=== PATIENT | male | born 1940 | race Caucasian/White ===

== ENCOUNTER 2022-02-25 16:15 | Outpatient (CLI) | payer MEDICARE, BC, SELFPAY ==
[2022-02-25 21:58] LABS: NT Pro B Type NatriureticPept* 1050 PG/mL (0-450)
== END 2022-02-25 16:16 | disposition home or self-care (01) ==
LOC: LKVREF 16:16
PROVIDERS: PCP Physician Assistant Medical; Visit Provider Physician Assistant Medical
DX: J44.9 Chronic obstructive pulmonary disease, unspecified (principal); R06.00 Dyspnea, unspecified
CPT/HCPCS: 83880

== ENCOUNTER 2022-03-03 09:41 | Outpatient (CLI) | payer MEDICARE, BC, SELFPAY ==
[2022-03-03 14:45] LABS: NT Pro B Type NatriureticPept* 697 PG/mL (0-450)
== END 2022-03-03 09:42 | disposition home or self-care (01) ==
LOC: LKVREF 09:44
PROVIDERS: PCP Physician Assistant Medical; Visit Provider Physician Assistant Medical
DX: R06.00 Dyspnea, unspecified (principal)
CPT/HCPCS: 83880

== ENCOUNTER 2022-04-29 11:08 | Outpatient (CLI) | payer MEDICARE, BC, SELFPAY ==
[2022-04-29 14:13] LABS: NT Pro B Type NatriureticPept* 613 PG/mL (0-450)
== END 2022-04-29 11:09 | disposition home or self-care (01) ==
PROVIDERS: PCP Physician Assistant Medical; Visit Provider Physician Assistant Medical
DX: Z01.818 Encounter for other preprocedural examination (principal); R06.00 Dyspnea, unspecified
CPT/HCPCS: 83880

== ENCOUNTER 2022-12-09 07:49 | Outpatient (RCR) | payer MEDICARE, BC, SELFPAY ==
--- NOTE | 2022-12-09 08:00 | NM_ITS ---
Patient: EMILY SOLORZANO Facility:?[facility] Patient ID:?[id number] Site Patient ID:?[id number] Site :?[id number] Study:?NM-Cardiac LEXISCAN MYOCARDIAL PERFUSION-12/09/2022 11:17:44 AM Ordering Physician:?ALISHA MAYER Final Report: MYOCARDIAL PERFUSION SCAN CLINICAL HISTORY: 82-year-old male. Dyspnea. COPD. Emphysema. Paroxysmal atrial fibrillation. Hypertension. Hyperlipidemia. 250 pounds. TECHNIQUE: (Resting SPECT and Stress Gated SPECT with wall motion and ejection fraction) Stress: Pharmacologic ? Lexiscan (0.4 mg) (IV) Dose (Stress/Rest): 40.7 mCi/39.9 mCi Tc-99m Sestamibi (IV) Comparison: 01/25/2005 (report) FINDINGS: There is good uptake of activity by the left ventricle. No left ventricular enlargement is noted. There is mild soft tissue attenuation. No other significant fixed or reversible defects are identified. The gated images demonstrate a normal left ventricular ejection fraction of approximately 65 percent. No regional wall motion abnormalities are identified. Compared to the report of the 01/25/2005 study, there has been no significant change. IMPRESSION: 1. There is no evidence of significant myocardial ischemia or infarction. 2. Normal left ventricular ejection fraction of approximately 65 percent. Hair Dubose M.D. Diagnostic/Nuclear Medicine Radiologist [email or web address] LEONIDESB/djw: D& Transcribed: 2:35 pm DW/Dictated by: Hair Dubose MD @ 12/09/2022 1:49:00 PM Signed by:?Hair Dubose MD @12/09/2022 4:26:44 PM (Electronic Signature)
[2022-12-09] MEDS: SODIUM CHLORIDE 0.9 % (FLUSH) 10 ML SYRINGE IVF (08:55)
[2022-12-09] MEDS: REGADENOSON 0.4 MG/5 ML SYRINGE IVP (08:55)
[2022-12-09 09:20] VITALS: BP 165/90; PULSE 76
--- NOTE | 2022-12-09 15:26 | W.PM.STED ---
Stress Test Note Date Date of test: 12/09/22 Providers Primary care provider: Liliana Joy Stress test physician: Johann Rao Stress Test Note Stress test ordered: Lexiscan Indication for test: Shortness of breath Stress test medicine: Lexiscan Results discussion: Patient is a very nice 82-year-old gentleman who presents for the above test after discussion risks benefits side effects he would like to proceed pretest EKG shows normal sinus rhythm, with a ventricular rate of 61 blood pressure 168 on 86. No acute ST wave changes are noted. With occasional PVC. Cardiac stress test medical history form is reviewed. Standard Lexiscan nonwalking protocol is employed over the normal 5 minute. There were no complications he had absolutely no symptoms at all during the test. Review of the post test tracing shows no change from the pretest EKG. There is no ST wave changes, there is no dysrhythmias. Impression: Negative electrographic portion of Lexiscan Follow up suggested: Patient will be discharged home , nuclear Medicine will read the nuclear portion, clinical correlation with this will be needed. Patient left this testing facility back to baseline with no apparent distress
== END 2022-12-21 23:59 | disposition home or self-care (01) ==
LOC: STRESS 07:49
PROVIDERS: PCP Physician Assistant Medical; Visit Provider Family Medicine
DX: R06.00 Dyspnea, unspecified (principal)
CPT/HCPCS: 78452; 93016; 93017; A9500; J2785

== ENCOUNTER 2023-02-17 13:34 | Outpatient (CLI) | payer MEDICARE, BC, SELFPAY | END 2023-02-17 13:35 | disposition home or self-care (01) | LOC: LKVREF 13:35 | PROVIDERS: PCP Physician Assistant Medical; Visit Provider Physician Assistant Medical | DX: I11.0 Hypertensive heart disease with heart failure (principal); I50.9 Heart failure, unspecified; I48.92 Unspecified atrial flutter; I48.0 Paroxysmal atrial fibrillation; Z79.01 Long term (current) use of anticoagulants; R79.89 Other specified abnormal findings of blood chemistry; R06.00 Dyspnea, unspecified; E78.5 Hyperlipidemia, unspecified | CPT/HCPCS: 83880; 85610 ==

== ENCOUNTER 2023-02-24 12:29 | Observation (INO) | payer MEDICARE, BC, SELFPAY ==
[2023-02-24] VITALS (8 sets, daily range): BP systolic 133–154; BP diastolic 91–113; PULSE 55–87; RESP 18–20; TEMP 36.1–36.6; O2SAT 91–94; BMI 38.6
--- NOTE | 2023-02-24 14:51 | P.IMHP_ITS ---
Hospitalist- H&P: HPI History of Present Illness Time Seen by Provider: 13:30 Date Seen: 02/24/23 Chief complaint: direct admit Narrative: Kumar Sam is a 82 year old man with 2 month history of progressive dyspnea with exertion. Can hardly walk up a flight of steps now, can only walk 50 ft at most now before needing to stop to catch his breath. Denies cough. Denies fevers, rigors, diaphoresis. Denies paroxysmal nocturnal dyspnea or orthopnea. Denies chest heaviness, pressure, tightness, or pain. Acknowledges increased lower extremity edema. Denies claudication. Denies palpitations or chest fluttering. No blood loss. No recent major travel. Chronically anticoagulated due to paroxysmal atrial fibrillation, yet he is in unaware of having a cardiac dysrhythmia diagnosis. Review of Systems Status of ROS: Reports: 10 or more systems reviewed and unremarkable except as noted in History and below Narrative: Applies salt directly to his food before he eats on a routine, regular basis. [facility] Medical History (Updated 02/24/23 @ 15:23 by Darryl Steele MD) Paroxysmal atrial fibrillation ?I48.0 - Paroxysmal atrial fibrillation (ICD-10) Pulmonary emphysema (08/2020) ?J43.9 - Emphysema, unspecified (ICD-10) Obstructive sleep apnea treated with continuous positive airway pressure (CPAP) ?G47.33 - Obstructive sleep apnea (adult) (pediatric) (ICD-10) ?Z99.89 - Dependence on other enabling machines and devices (ICD-10) Arthritis of right acromioclavicular joint ?M19.011 - Primary osteoarthritis, right shoulder (ICD-10) Right rotator cuff tear arthropathy ?M75.101 - Unspecified rotator cuff tear or rupture of right shoulder, not specified as traumatic (ICD-10) ?M12.811 - Other specific arthropathies, not elsewhere classified, right shoulder (ICD-10) Lumbar facet arthropathy ?M47.816 - Spondylosis without myelopathy or radiculopathy, lumbar region (ICD-10) Spinal cord stimulator status ?Z96.89 - Presence of other specified functional implants (ICD-10) HTN (hypertension) ?I10 - Essential (primary) hypertension (ICD-10) Leg swelling ?M79.89 - Other specified soft tissue disorders (ICD-10) Dyspnea ?R06.00 - Dyspnea, unspecified (ICD-10) Right shoulder pain (07/2021) ?M25.511 - Pain in right shoulder (ICD-10) ocean transportation intermediary current use of anticoagulant therapy ?Z79.01 - [facility] (current) use of anticoagulants (ICD-10) Hyperlipidemia ?E78.5 - Hyperlipidemia, unspecified (ICD-10) 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 ?H91.92 - Unspecified hearing loss, left ear (ICD-10) Gastroesophageal reflux disease ?K21.9 - Gastro-esophageal reflux disease without esophagitis (ICD-10) Chronic urticaria ?L50.8 - Other urticaria (ICD-10) Chronic back pain ?M54.9 - Dorsalgia, unspecified (ICD-10) ?G89.29 - Other chronic pain (ICD-10) Benign prostatic hyperplasia ?N40.0 - Benign prostatic hyperplasia without lower urinary tract symptoms (ICD-10) Restless legs ?G25.81 - Restless legs syndrome (ICD-10) Chronic low back pain ?M54.50 - Low back pain, unspecified (ICD-10) ?G89.29 - Other chronic pain (ICD-10) Pain of left lower extremity (08/2020) ?M79.605 - Pain in left leg (ICD-10) Excessive cerumen in ear canal ?H61.20 - Impacted cerumen, unspecified ear (ICD-10) Chronic otitis media ?H66.90 - Otitis media, unspecified, unspecified ear (ICD-10) Surgical History History of lumbar surgery ?Z98.890 - Other specified postprocedural states (ICD-10) History of cholecystectomy ?Z90.49 - Acquired absence of other specified parts of digestive tract (ICD- 10) Social History Narrative: health care directive on file- health care directive completed on 10/16/2019. Reviewed and sent to be scanned on 12/18/2019. . Lives alone. DNR DNI resuscitation status. Designates his daughter, Krystal, as his power of patent prosecution attorney for health should that be required, or his son Emerson. What is your current living situation?: I presently have a place to live Problems where you live: no known problems Problems where you live details: none In the past 12 months, utilities in danger of being shut off: no In the past 12 mos, have been you worried that your food would run out before you had money to buy more?: never true In the past 12 mos, the food you bought just didn't last and you didn't have money to buy more?: never true Highest level of school completed/degree received: high school graduate Smoking Status: Former smoker What tobacco products do you use: cigarettes Years smoked: 35 Smoking quit date/years: >15 years ago Do you use any of these nicotine containing products: None Second hand tobacco smoke exposure: No How often do you have a drink containing alcohol: 2-3 times a week Alcohol type: beer Alcohol type details: 1 beer twice a week How many standard drinks containing alcohol do you have on a typical day: 1 or 2 How often do you have six or more drinks on one occasion: Never AUDIT-C Alcohol total score: 3 Non-prescribed substance use: denies use Caffeine: Yes (6-8 cups) How often does anyone, including family, friends and others, physically hurt you : never How often does anyone, including family, friends and others, insult or talk down to you: never How often does anyone, including family, friends and others, threaten you with harm: never How often does anyone, including family, friends and others, scream or curse at you: never service: No Meds Home Medications and Allergies Home Medications Medication Instructions Recorded Confirmed Type atorvastatin 10 mg tablet 10 mg PO HS 01/25/22 02/24/23 History amlodipine 5 mg tablet 5 mg PO QDAY 02/24/23 02/24/23 History hydrocodone 10 mg-acetaminophen 1 tab PO BID PRN chronic pain 02/24/23 02/24/23 History 325 mg tablet hydroxyzine pamoate 25 mg capsule 25 mg PO DAILY itching 02/24/23 02/24/23 History omeprazole 20 mg capsule,delayed 20 mg PO HS 02/24/23 02/24/23 History release potassium chloride 10 mEq 10 meq PO QDAY 02/24/23 02/24/23 History tablet,extended release ropinirole 0.5 mg tablet 0.5 mg PO HS restless leg(s) 02/24/23 02/24/23 History terazosin 2 mg capsule 2 - 4 mg PO BID 02/24/23 02/24/23 History warfarin 2.5 mg tablet 2.5 - 5 mg PO QDAY 02/24/23 02/24/23 History Home Medication Comments: Amlodipine was recently started, about a week ago, due to persistently elevated systolic blood pressures. Allergies Allergy/AdvReac Type Severity Reaction Status Date / Time ciprofloxacin Allergy Intermediate left arm Verified 02/24/23 09:34 pain, numbness Penicillins Allergy throat Verified 02/24/23 09:34 closing Exam Narrative: Exam Narrative: I examine him in his hospital room. Appears comfortable and in no acute distress while sitting upright on the edge of his hospital bed. Respiratory rate 20 at rest. Weight in hospital today 113.5 kg. Weight in clinic today 116.7 kg. Weight in clinic on 02/17/2023 is 115 0.5 kg. Weight in clinic on 02/03/2023 is 113.4 kg in the clinic. Alert and oriented to self, place, time, situation. Articulate, cooperative. Mood and affect are congruent. Vision and hearing are grossly normal. Does use hearing aid. Buccal mucosa is moist. Midline nasal septum. Mallampati class 4 airway. Neck is supple. Midline trachea. No thyromegaly. No carotid bruits. He has no jugular venous distension while sitting upright, but does have hepatojugular reflux to the angle of the jaw when sitting upright. Barrel shaped chest. Lungs clear to auscultation without wheezing, rhonchi, or rales. Heart tones with chaotic rhythm. Abdomen is obese with active bowel sounds, soft, nontender. Patient has peripheral edema pedally, pretibially, and in both eyes. Does not have edema in presacral area. Independent in transfer, station, and gait. Slow to move. Forward stooped posture. Changes of osteoarthritis in both hands. Const: Vital Signs, click to edit/add: Vital Signs - 24 hr 02/24/23 12:56 02/24/23 13:13 Temperature 97.8 F Pulse Rate [Left A pical] 73 Respiratory Rate 20 20 Blood Pressure [Ri ght Arm] 133/97 H Pulse Oximetry 91 91 Oxygen Delivery Me thod Room Air Room Air Documenting provider has reviewed patient's vital signs: yes Hospitalist - H&P: Result Labs Labs: CBC without abnormalities. Chemistries are pending, including NT proBNP and tr oponin I. Await electrocardiogram. Await echocardiogram. ECG Attestation: I personally reviewed and interpreted this ECG as follows: ECG interpretation date: 02/24/23 ECG interpretation time: 15:20 Prior ECG tracings: not available for review Interpretation: Atrial flutter with 4-1 conduction. Low-voltage QRS consistent with pulmonary disease. No ischemic changes. Imaging Chest x-ray: Attestation: I have reviewed the pertinent imaging results. Radiologist's impression: Radiologist interpretation still not available. Mild encephalization consistent with volume overloaded state. Assessment and Plan Assessment and plan (1) Heart failure with preserved ejection fraction: Status: Acute (2) Acute exacerbation of congestive heart failure: Status: Acute (3) Dyspnea on exertion: Status: Acute (4) Dyspnea: Problem comment: [id number] cancer screening, showing scattered emphysema, stable and coronary artery disease [id number] x-ray 11/2022- stress test IMPRESSION: 1. There is no evidence of significant myocardial ischemia or infarction. 2. Normal left ventricular ejection fraction of approximately 65 percent. 02/24/23- pt evaluated in clinic in atrial flutter. Elevated BNP Status: Acute (5) Leg swelling: Problem comment: On furosemide Status: Acute (6) Elevated brain natriuretic peptide (BNP) level: Status: Acute (7) Pulmonary emphysema: Problem comment: 08/24/2021-lung cancer screening, CT Head prescribe Symbicort, Flovent, Advair. Patient did not appreciate cost. Status: Acute (8) Obstructive sleep apnea treated with continuous positive airway pressure (CPAP): Status: Acute (9) Paroxysmal atrial fibrillation: Status: Acute (10) Atrial flutter with controlled response: Status: Acute Plan 1. Admit to observation 2. Telemetry 3. Daily weight 4. Discontinue furosemide 20 mg once daily which he tells me he has not really been taking 5. Furosemide 40 mg IV once 6. Furosemide 40 mg once daily starting tomorrow morning 7. Daily INR. Hold warfarin today given INR elevated at 3.3. 8. Transthoracic echocardiogram 9. Continue with metoprolol succinate 100 mg daily and losartan 100 mg daily 10. 2 g sodium diet. Dietary to teach patient. This was news for the patient and his 2 sons. Reportedly known has ever told him about this. Again he uses salt indiscriminately on his food. Will ask dietitian to instruct patient regarding a 2 g sodium diet. 11. Continue with other supportive efforts, including home CPAP. 12. Reviewed the above with the patient and his 2 sons. Answered their questions. They are in agreement.
[2023-02-24 14:54] LABS: Mean Corpuscular HGB Conc 32 gm/dL (32-36); Mean Corpuscular Hemoglobin 29 pg (26-34); Mean Corpuscular Volume 92 fL (80-100); Platelet Count* 178 K/uL (140-440); Red Blood Count 4.77 m/uL (4.30-5.90); White Blood Count* 6.65 K/uL (4.50-11.00)
[2023-02-24 14:56] LABS: Slide Review Reflex No
[2023-02-24] MEDS: FUROSEMIDE 10 MG/ML inj 40 MG IVP (15:09)
[2023-02-24 15:16] LABS: Albumin* 4.2 g/dL (3.3-5.0); Chloride* 107 mmol/L (96-114); Potassium* 4.4 mmol/L (3.6-5.1); Sodium* 141 mmol/L (135-149)
[2023-02-24 15:19] LABS: Anion Gap 8 mEq/L (7-15); Blood Urea Nitrogen* 19 mg/dL (7-30); Carbon Dioxide* 26 mmol/L (20-32); Est. Creatinine Clearance* 51.41; Estimated Glomerular Filt Rate 74 ml/min; Glucose* 95 mg/dL (60-115); Phosphorus* 3.9 mg/dL (2.5-4.5)
[2023-02-24 15:20] LABS: Calcium* 9.5 mg/dL (8.4-10.6)
--- NOTE | 2023-02-24 15:35 | PC.NURSE ---
Patient was a direct admit to med/surg from [facility] for heart failure and shortness of breath @ 1236 pm. Sons present at bedside. Admission information obtained per primary RN. Orders obtained after Dr. Steele evaluated pt and they were entered at 1422 pm. IV start per Irene WESTBROOK with lab draw, EKG, orthostatic bps at shift change & IV Lasix given. Tele box #[id number]. Report to Pat RN for evening shift.
[2023-02-24 15:36] LABS: NT Pro B Type NatriureticPept* 2760 pg/mL; Troponin I* < 0.01 ng/mL (0.01-0.04)
[2023-02-24] MEDS: LOSARTAN POTASSIUM 50 MG TABLET 100 MG PO (15:48)
[2023-02-24] MEDS: METOPROLOL SUCCINATE (XL) 100 MG TAB PO (15:48)
[2023-02-24] MEDS: SODIUM CHLORIDE 0.9 % (FLUSH) 10 ML SYRINGE 5 ML IVF (21:06)
[2023-02-24] MEDS: ROPINIROLE HCL 1 MG TABLET 0.5 MG PO (21:06)
[2023-02-24] MEDS: OMEPRAZOLE 20 MG CAPSULE DR PO (21:06)
[2023-02-24] MEDS: TERAZOSIN HCL 1 MG CAPSULE 2 MG PO (21:06)
[2023-02-24] MEDS: ATORVASTATIN 10 MG TABLET PO (21:07)
--- NOTE | 2023-02-24 22:35 | PC.NURSE ---
end of shift. pt has been pleasant. no pain. pt is up with SBA. he is using his call light. he got Lasix and has been voiding. he is eating, drinking with no problems. teds socks are on. he is watching tv
[2023-02-25] VITALS (7 sets, daily range): BP systolic 128–151; BP diastolic 71–91; PULSE 58–79; RESP 16–18; TEMP 36.7; O2SAT 90–96
[2023-02-25 07:02] LABS: Albumin* 4.1 g/dL (3.3-5.0); Chloride* 106 mmol/L (96-114); Sodium* 142 mmol/L (135-149)
[2023-02-25 07:05] LABS: Anion Gap 9 mEq/L (7-15); Blood Urea Nitrogen* 24 mg/dL (7-30); Calcium* 9.6 mg/dL (8.4-10.6); Carbon Dioxide* 27 mmol/L (20-32); Est. Creatinine Clearance* 51.41; Estimated Glomerular Filt Rate 74 ml/min; Glucose* 102 mg/dL (60-115); Phosphorus* 3.9 mg/dL (2.5-4.5)
[2023-02-25 07:07] LABS: INR 2.42 (0.91-1.10); Prothrombin Time 27.5 Seconds
[2023-02-25] MEDS: FUROSEMIDE 40 MG TABLET PO (08:51)
[2023-02-25] MEDS: hydrOXYzine pamoate 25 MG CAPSULE PO (08:51)
[2023-02-25] MEDS: METOPROLOL SUCCINATE (XL) 100 MG TAB PO (08:51)
[2023-02-25] MEDS: LOSARTAN POTASSIUM 50 MG TABLET 100 MG PO (08:52)
[2023-02-25] MEDS: SODIUM CHLORIDE 0.9 % (FLUSH) 10 ML SYRINGE 5 ML IVF (09:47)
[2023-02-25] MEDS: TERAZOSIN HCL 1 MG CAPSULE 4 MG PO (10:09)
--- NOTE | 2023-02-25 13:09 | PC.NURSE ---
Discharge note- Pt discharged home with his daughter. all discharge instructions were reviewed as well as education on CHF regrading diet, fluid and daily weights. Discharged @ 1255. Follow up appointment scheduled.
--- NOTE | 2023-02-25 14:05 | NUTR.NU ---
Nutrition education provided on a low sodium diet related to congestive heart failure.? Verbal and written information provided. Recommend limiting sodium to 2,000 mg per day.? Discussed foods recommended and to avoid.? Handouts provided from [facility] on heart failure nutrition therapy, sodium content of foods, heart healthy label reading tips, sodium-free flavoring tips and heart healthy cooking and shopping tips.? Patient verbalized understanding and willingness to comply.?? RDN's contact information was provided and patient was encouraged to call with questions.?
--- NOTE | 2023-02-25 15:16 | PM.DS1 ---
DS: Providers Provider Time Seen by Provider: 10:00 Date Seen: 02/25/23 Date of admission: 02/24/23 12:29 Primary care physician: Liliana Joy PA-C Admitting Clinician: Darryl Steele MD Consults: 02/24/23 13:50 Consult to Occupational Therapy [CONS] Routine Comment: Reason(s) for OT Consult:: Difficulty Managing ADLs Any Restrictions?:: See Comment Comment: uses cane at home, dyspnea with exertion d/to CHF Consult to Physical Therapy [CONS] Routine Comment: Reason(s) for PT Consult:: Evaluate and Treat Any Restrictions?:: See Comment 02/24/23 14:16 Consult to Nutrition [CONS] Routine Comment: Reason for consult:: Miscellaneous Comment: Heart failure, 2 gram sodium diet Attending Physician on discharge: Darryl Steele MD Date of Discharge: 02/25/23 DS: Diagnosis Discharge Diagnosis (1) Acute exacerbation of congestive heart failure: Status: Acute (2) Heart failure with preserved ejection fraction: Status: Acute Problem details: Transesophageal echo 02/24/2023: LV EF 60-65%, moderate increased size in right ventricle with normal function, moderate tricuspid regurgitation, moderate pulmonary hypertension with right ventricular pressure 56 mmHg plus right atrial pressure. (3) Moderate tricuspid valve regurgitation: Status: Acute (4) Pulmonary hypertension: Status: Acute Problem details: Transesophageal echo 02/24/2023: LV EF 60-65%, moderate increased size in right ventricle with normal function, moderate tricuspid regurgitation, moderate pulmonary hypertension with right ventricular pressure 56 mmHg plus right atrial pressure. (5) Dyspnea on exertion: Status: Acute (6) Pulmonary emphysema: Status: Acute Problem details: 08/24/2021-lung cancer screening, CT Head prescribe Symbicort, Flovent, Advair. Patient did not appreciate cost. (7) Paroxysmal atrial fibrillation: Status: Acute (8) Obstructive sleep apnea treated with continuous positive airway pressure (CPAP): Status: Acute (9) Atrial flutter with controlled response: Status: Acute Problem details: Per ECG 02/24/2023, but converted to NSR by 02/25/2023 DS: Summary Hospital Course Hospital Course: 82 year old man with 2 month history of progressive dyspnea with exertion. Can hardly walk up a flight of steps now, can only walk 50 ft at most now before needing to stop to catch his breath. Denies cough. Denies fevers, rigors, diaphoresis. Denies paroxysmal nocturnal dyspnea or orthopnea. Denies chest heaviness, pressure, tightness, or pain. Acknowledges increased lower extremity edema. Denies claudication. Denies palpitations or chest fluttering. No blood loss. No recent major travel. Chronically anticoagulated due to paroxysmal atrial fibrillation, yet he is in unaware of having a cardiac dysrhythmia diagnosis. Patient given a single dose of IV furosemide 60 mg on presentation to the hospital. Overnight he diuresed a total of 4.2 kg, from 113.5 kg down to 109.3 kg. His complaint of dyspnea on exertion improved substantially. His hepatojugular reflux resolved. Lower extremity edema much less. He was already on metoprolol succinate 100 mg once daily as well as losartan 100 mg once daily. I did not change these medications. Time Spent with Patient Time attestation: Total time spent providing and/or coordinating discharge services: Exam Narrative: Exam Narrative: I examine him in his hospital room. Appears comfortable and in no acute distress while sitting upright on the edge of his hospital bed. Respiratory rate 16 at rest. Weight in hospital on admission was 113.5 kg. Weight today is down to 109.3 kg. Alert and oriented to self, place, time, situation. Articulate, cooperative. Mood and affect are congruent. Vision and hearing are grossly normal. Does use hearing aid. Buccal mucosa is moist. Midline nasal septum. Mallampati class 4 airway. Neck is supple. Midline trachea. No thyromegaly. No carotid bruits. He has no jugular venous distension and no hepatojugular reflux to the angle of the jaw when sitting upright. Barrel shaped chest. Lungs clear to auscultation without wheezing, rhonchi, or rales. Heart tones with chaotic rhythm. Abdomen is obese with active bowel sounds, soft, nontender. Patient had peripheral edema pedally, pretibially, and in both thighs on presentation. No longer has edema in the thighs. Independent in transfer, station, and gait. Slow to move. Forward stooped posture. Changes of osteoarthritis in both hands. Const: Vital Signs, click to edit/add: Vital Signs - 24 hr 02/24/23 15:36 02/24/23 15:45 02/24/23 15:57 Temperature Pulse Rate 74 Pulse Rate [Left A pical] Pulse Rate [Pulse Oximeter] Pulse Rate [orthos tatic lying Pulse Oximeter] Pulse Rate [orthos tatic sitting Puls e Oximeter] Pulse Rate [orthos tatic standing Pul se Oximeter] Respiratory Rate 18 18 Blood Pressure [Le ft Arm] Blood Pressure [Ri ght Arm] Blood Pressure [or thostatic lying Ri ght Arm] Blood Pressure [or thostatic sitting Right Arm] Blood Pressure [or thostatic standing Right Arm] Pulse Oximetry 94 Oxygen Delivery Me thod Room Air 02/24/23 15:57 02/24/23 17:45 02/24/23 19:45 Temperature 97.1 F L 97.0 F L Pulse Rate Pulse Rate [Left A pical] 79 71 Pulse Rate [Pulse Oximeter] Pulse Rate [orthos tatic lying Pulse Oximeter] Pulse Rate [orthos tatic sitting Puls e Oximeter] Pulse Rate [orthos tatic standing Pul se Oximeter] Respiratory Rate 18 18 Blood Pressure [Le ft Arm] Blood Pressure [Ri ght Arm] 153/94 H 147/91 H Blood Pressure [or thostatic lying Ri ght Arm] Blood Pressure [or thostatic sitting Right Arm] Blood Pressure [or thostatic standing Right Arm] Pulse Oximetry 94 91 Oxygen Delivery De thod Room Air Room Air Room Air 02/24/23 23:44 02/25/23 00:00 02/25/23 00:00 Temperature Pulse Rate 55 L Pulse Rate [Left A pical] Pulse Rate [Pulse Oximeter] 58 L Pulse Rate [orthos tatic lying Pulse Oximeter] Pulse Rate [orthos tatic sitting Puls e Oximeter] Pulse Rate [orthos tatic standing Pul se Oximeter] Respiratory Rate 16 16 Blood Pressure [Le ft Arm] Blood Pressure [Ri ght Arm] Blood Pressure [or thostatic lying Ri ght Arm] Blood Pressure [or thostatic sitting Right Arm] Blood Pressure [or thostatic standing Right Arm] Pulse Oximetry 95 Oxygen Delivery Me thod Room Air 02/25/23 00:00 02/25/23 03:00 02/25/23 06:00 Temperature Pulse Rate Pulse Rate [Left A pical] 60 Pulse Rate [Pulse Oximeter] 58 L 65 Pulse Rate [orthos tatic lying Pulse Oximeter] 68 Pulse Rate [orthos tatic sitting Puls e Oximeter] 72 Pulse Rate [orthos tatic standing Pul se Oximeter] 74 Respiratory Rate 16 16 Blood Pressure [Le ft Arm] 128/71 Blood Pressure [Ri ght Arm] 151/78 H Blood Pressure [or thostatic lying Ri ght Arm] 140/76 H Blood Pressure [or thostatic sitting Right Arm] 131/74 Blood Pressure [or thostatic standing Right Arm] 131/91 H Pulse Oximetry 95 96 Oxygen Delivery Me thod Room Air Room Air 02/25/23 07:40 02/25/23 08:15 02/25/23 08:30 Temperature 98.0 F Pulse Rate 64 Pulse Rate [Left A pical] Pulse Rate [Pulse Oximeter] 79 Pulse Rate [orthos tatic lying Pulse Oximeter] Pulse Rate [orthos tatic sitting Puls e Oximeter] Pulse Rate [orthos tatic standing Pul se Oximeter] Respiratory Rate 18 18 Blood Pressure [Le ft Arm] 149/75 H Blood Pressure [Ri ght Arm] Blood Pressure [or thostatic lying Ri ght Arm] Blood Pressure [or thostatic sitting Right Arm] Blood Pressure [or thostatic standing Right Arm] Pulse Oximetry 90 90 Oxygen Delivery Me thod Room Air Room Air 02/25/23 10:18 Temperature Pulse Rate 74 Pulse Rate [Left A pical] Pulse Rate [Pulse Oximeter] Pulse Rate [orthos tatic lying Pulse Oximeter] Pulse Rate [orthos tatic sitting Puls e Oximeter] Pulse Rate [orthos tatic standing Pul se Oximeter] Respiratory Rate Blood Pressure [Le ft Arm] Blood Pressure [Ri ght Arm] Blood Pressure [or thostatic lying Ri ght Arm] Blood Pressure [or thostatic sitting Right Arm] Blood Pressure [or thostatic standing Right Arm] Pulse Oximetry Oxygen Delivery Me thod Documenting provider has reviewed patient's vital signs: yes DS: Data Data Completed and Pending Labs on day of discharge: Labs from last 24 hours 02/25/23 02/24/23 05:57 14:45 INR 2.42 H Sodium 142 141 Potassium 4.0 4.4 Chloride 106 107 Carbon Dioxide 27 26 Anion Gap 9 8 BUN 24 19 Creatinine 1.0 1.0 Estimated Creat Clear 51.41 51.41 Estimated GFR 74 74 Glucose 102 95 Calcium 9.6 9.5 Phosphorus 3.9 3.9 Troponin I < 0.01 L NT-Pro-B Natriuret Pep 2760 Albumin 4.1 4.2 Imaging Chest x-ray: Attestation: I have reviewed the pertinent imaging results. Radiologist's impression: 02/24/2023 IMPRESSION: Right basilar atelectasis. No acute findings. Additional Comments Additional comments: Electrocardiogram on presentation demonstrated atrial flutter at a 4:1 conduction. Electrocardiogram on date of discharge demonstrated normal sinus rhythm. Discharge Plan Discharge Disposition: Home, Self-Care Date of Admission: 02/24/23 12:29 Attending Provider on Discharge: Darryl Steele Primary Care Provider: Liliana Joy Condition: Improved Anticipated Discharge Date/Time: 02/25/23 11:55 Discharge Medications: New furosemide 40 mg Tablet 40 mg PO DAILY@0800 30 Days Qty: 30 1RF Continued albuterol sulfate [ProAir HFA] 90 mcg/actuation HFA aerosol inhaler 2 puff inhalation Q4-6H PRN (Reason: bronchospasm) Qty: 8.5 3RF Rx Instructions: take 1-2 puffs every 4-6 hours as needed for shortness of breath/wheezing acetaminophen 500 mg tablet 1,000 mg PO BID PRN (Reason: back pain) Qty: 120 6RF Rx Instructions: Take two tablets twice daily for back pain warfarin 2.5 mg tablet 2.5 - 5 mg PO QDAY Protocol: Dose Management Condition: Tuesday Dose/Route: 2.5 mg Instruction: 1 x 2.5 mg tablet Condition: Tuesday Dose/Route: 2.5 mg Instruction: 1 x 2.5 mg tablet Condition: Tuesday Dose/Route: 2.5 mg Instruction: 1 x 2.5 mg tablet Condition: Tuesday Dose/Route: 5 mg Instruction: 2 x 2.5 mg tablets Condition: Dose/Route: 2.5 mg Instruction: 1 x 2.5 mg tablet Condition: Tuesday Dose/Route: 2.5 mg Instruction: 1 x 2.5 mg tablet Condition: Tuesday Dose/Route: 2.5 mg Instruction: 1 x 2.5 mg tablet Protocol Text: Adjustment Start Date: 02/17/23 INR Value: 3.22 INR Date: 02/17/23 Recheck Date: 02/24/23 Rx Instructions: Take 5mg on Tuesday, take 2.5mg all other days. potassium chloride 10 mEq tablet extended release 10 meq PO QDAY amlodipine 5 mg tablet 5 mg PO QDAY hydrocodone-acetaminophen 10-325 mg tablet 1 tab PO BID PRN (Reason: chronic pain) terazosin 2 mg capsule 2 - 4 mg PO BID Rx Instructions: Take 2 Capsule in the morning and 1 capsules in the evening ropinirole 0.5 mg tablet 0.5 mg PO HS Rx Instructions: for restless legs omeprazole 20 mg capsule,delayed release(DR/EC) 20 mg PO HS hydroxyzine pamoate 25 mg capsule 25 mg PO DAILY Rx Instructions: once daily for itching atorvastatin 10 mg tablet 10 mg PO HS metoprolol succinate 100 mg tablet extended release 24 hr 100 mg PO QDAY Qty: 90 3RF losartan 100 mg tablet 100 mg PO QDAY Qty: 90 1RF Rx Instructions: take 1 tablet once daily NEW dosing Discontinued furosemide 20 mg tablet 20 mg PO DAILY Qty: 90 0RF Rx Instructions: once daily in the morning for fluid retention Discharge Orders: Discharge Order (Routine); Ordered 02/25/23 Ordered By: Darryl Steele Patient Education: Furosemide (By mouth), Heart Failure (DC), Seasoning Without Salt (DC), Low-Sodium Diet (DC) Activity Level: No Restrictions and Activity as Tolerated Discharge Diet: Heart Healthy (2 gm sodium, low fat) Follow Up Appointments: Liliana Joy PA-C [Primary Care Provider] - 03/02/23 2:00 pm ([facility] for follow-up.) Forms: [employer] Info Instructions
== END 2023-02-25 12:55 | disposition home or self-care (01) ==
PROVIDERS: Admitting Provider Internal Medicine; PCP Physician Assistant Medical; Visit Provider Internal Medicine
DX: I50.30 Unspecified diastolic (congestive) heart failure (principal); I50.9 Heart failure, unspecified; R06.09 Other forms of dyspnea; R06.00 Dyspnea, unspecified; M79.89 Other specified soft tissue disorders; R79.89 Other specified abnormal findings of blood chemistry; J43.9 Emphysema, unspecified; G47.33 Obstructive sleep apnea (adult) (pediatric); Z99.89 Dependence on other enabling machines and devices; I48.0 Paroxysmal atrial fibrillation; I48.92 Unspecified atrial flutter; I07.1 Rheumatic tricuspid insufficiency; I27.20 Pulmonary hypertension, unspecified
CPT/HCPCS: 36415; 80069; 83880; 84484; 85027; 85610; 93005; 93306; 96374; 97116; 97162; 97165; G0378; A9270; G0379; J1940

== ENCOUNTER 2023-04-07 10:56 | Outpatient (CLI) | payer MEDICARE, BC, SELFPAY | END 2023-04-07 10:57 | disposition home or self-care (01) | LOC: LKVREF 10:58 | PROVIDERS: PCP Physician Assistant Medical; Visit Provider Physician Assistant Medical | DX: I27.20 Pulmonary hypertension, unspecified (principal); I50.30 Unspecified diastolic (congestive) heart failure | CPT/HCPCS: 83880 ==

== ENCOUNTER 2023-07-25 10:08 | Outpatient (CLI) | payer MEDICARE, BC, SELFPAY | END 2023-07-25 10:09 | disposition home or self-care (01) | LOC: LKVREF 10:10 | PROVIDERS: PCP Physician Assistant Medical; Visit Provider Physician Assistant Medical | DX: R06.00 Dyspnea, unspecified (principal); I50.30 Unspecified diastolic (congestive) heart failure; I48.0 Paroxysmal atrial fibrillation | CPT/HCPCS: 83880 ==

== ENCOUNTER 2023-08-31 09:45 | Outpatient (CLI) | payer MEDICARE, BC, SELFPAY | END 2023-08-31 09:46 | disposition home or self-care (01) | PROVIDERS: PCP Physician Assistant Medical; Visit Provider Physician Assistant Medical | DX: E78.2 Mixed hyperlipidemia (principal); I50.30 Unspecified diastolic (congestive) heart failure | CPT/HCPCS: 80061; 83880 ==

== ENCOUNTER 2023-10-26 08:55 | Outpatient (CLI) | payer MEDICARE, BC, SELFPAY | END 2023-10-26 08:56 | disposition home or self-care (01) | LOC: NFLDREF 10-28 06:50 | PROVIDERS: PCP Physician Assistant Medical; Referring Provider Physician Assistant Medical; Visit Provider Physician Assistant Medical | DX: I50.30 Unspecified diastolic (congestive) heart failure (principal); Z79.01 Long term (current) use of anticoagulants | CPT/HCPCS: 85610 ==

== ENCOUNTER 2023-11-10 09:42 | Outpatient (CLI) | payer MEDICARE, BC, SELFPAY | END 2023-11-10 09:43 | disposition home or self-care (01) | PROVIDERS: PCP Physician Assistant Medical; Visit Provider Physician Assistant Medical | DX: R06.02 Shortness of breath (principal); I48.91 Unspecified atrial fibrillation; E78.5 Hyperlipidemia, unspecified; Z79.01 Long term (current) use of anticoagulants | CPT/HCPCS: 83880; 84443; 85610 ==

== ENCOUNTER 2023-11-24 10:58 | Outpatient (CLI) | payer MEDICARE, BC, SELFPAY | END 2023-11-24 10:59 | disposition home or self-care (01) | LOC: LKVREF 10:59 | PROVIDERS: PCP Physician Assistant Medical; Visit Provider Physician Assistant Medical | DX: I50.30 Unspecified diastolic (congestive) heart failure (principal); Z79.01 Long term (current) use of anticoagulants | CPT/HCPCS: 83880; 85610 ==

== ENCOUNTER 2024-01-02 08:08 | Outpatient (CLI) | payer MEDICARE, BC, SELFPAY | END 2024-01-02 08:09 | disposition home or self-care (01) | PROVIDERS: PCP Physician Assistant Medical; Visit Provider Physician Assistant Medical | DX: E78.5 Hyperlipidemia, unspecified (principal); I50.30 Unspecified diastolic (congestive) heart failure; D64.9 Anemia, unspecified | CPT/HCPCS: 80053; 80061; 82607; 82746; 83540; 83550; 83880 ==

== ENCOUNTER 2024-02-06 14:24 | Outpatient (CLI) | payer MEDICARE, BC, SELFPAY | END 2024-02-06 14:25 | disposition home or self-care (01) | LOC: NFLDREF 02-09 12:17 | PROVIDERS: PCP Physician Assistant Medical; Referring Provider Physician Assistant Medical; Visit Provider Physician Assistant Medical | DX: I48.0 Paroxysmal atrial fibrillation (principal); Z79.01 Long term (current) use of anticoagulants | CPT/HCPCS: 85610 ==

== ENCOUNTER 2024-03-12 13:58 | Outpatient (CLI) | payer MEDICARE, BC, SELFPAY | END 2024-03-12 13:59 | disposition home or self-care (01) | LOC: LKVREF 14:01 | PROVIDERS: PCP Physician Assistant Medical; Visit Provider Physician Assistant Medical | DX: I48.0 Paroxysmal atrial fibrillation (principal); I50.30 Unspecified diastolic (congestive) heart failure; Z79.01 Long term (current) use of anticoagulants | CPT/HCPCS: 83880 ==

== ENCOUNTER 2024-04-30 14:23 | Outpatient (CLI) | payer MEDICARE, BC, SELFPAY | END 2024-04-30 14:24 | disposition home or self-care (01) | LOC: LKVREF 14:24 | PROVIDERS: PCP Physician Assistant Medical; Visit Provider Physician Assistant Medical | DX: E78.5 Hyperlipidemia, unspecified (principal); I10 Essential (primary) hypertension; I50.30 Unspecified diastolic (congestive) heart failure | CPT/HCPCS: 83880 ==

== ENCOUNTER 2024-07-13 09:00 | Outpatient (RCR) | payer MEDICARE, BC, SELFPAY ==
--- NOTE | 2024-05-04 12:40 | PT.OPE ---
PT [place] [facility] Eval PT [facility] Outpatient Eval Start: 05/04/24 08:15 Freq: Status: Active Protocol: Document 05/04/24 08:15 ENM (Rec: 05/04/24 09:15 ENM [id number]) E-signed By Bisi Montoya, DPT Physical Therapy Outpatient Evaluation Insurance Information Recert Due Date 08/02/24 Insurance Name Medicare B Medical Diagnosis low back pain, unspecified other chronic pain other malaise Treating Diagnosis low back pain, deconditioning, muscle weakness, impaired balance, impaired gait, decreased lumbar ROM Referring MD Joy Subjective Subjective Patient presents to PT for complaint of low back pain. He has had 3 back surgeries in the past. Has a box in the back which does not work anymore. He doesn't walk much because of the lower back pain. Lives alone in a 5 bedroom house and manages it himself. His daughter will help with bedding and some cleaning. Uses a cane for stability. Doesn't have issues with sleeping due to pain. He is hoping to be able to walk better. Can only walk about 150' before he had to sit due to significant back pain. Will need about a 10 min rest break before it subsides. Does not do much exercise. Does try to stay active throughout the day but is not doing formal exercise. When it started: years ago Describes it as: consistent pain Timing: all the time Location: low back down to calf on both sides Irritability: moderate Severity: moderate PMHx: COPD, AFIB, Pain Comments on average 5/10 Current Work Status Retired Objective Other/Pertinent Objective Lumbar AROM: FF: to knees + for pain EXT: able to achieve neutral + for pain ROT: 25% limited primarily rotating through thoracic spine Patient rents in a flexed trunk posture Hip AROM: Flexion: WFL IR: 25% limited B ER: WFL Strength: 5xSTS with UE support 32.62s, medium difficulty Hip flexors: 4-/5 B Knee extensors: 4-/5 B Ankle DF 4/5 B Palpation/joint mobility: + for pain palpating of lower lumbar paraspinals Gait/balance: Able to walk 152 ' with SEC in 1 min and 43s before needing to sit due to back pain. Patient ambulates with variable use of SEC, flexed posture, shuffling throughout, mild instability normal NICKIE EO minimal instability normal NIKCIE EC mild instability narrow NICKIE EO minimal instability narrow NICKIE EC mild-mod instability Assessment Assessment/Impression Patient is an 83 year old male presenting with difficulty walking and chronic low back pain. Their primary complaint is of consistent low back pain that often worsens after walking >150'. They have a complex medical history for multiple low back surgeries. Their goal for PT is to improve ability to walk longer distances. Upon assessment patients concordant pains brought on with lumbar flexion, lumbar extension and ambulation. They are tender through lower lumbar paraspinals. He displays global muscle weakness with MMT and 5xSTS testing. Patient is able to ambulate 152' within clinic using SEC before needing a seated rest break due to low back pain. Don would greatly benefit from skilled PT to address impairments stated above in order to perform functional mobility and recreational activities without significant discomfort or difficulty. Primary Functional Limitations walking Plan of Care Rehabilitation Potential Fair Rehabilitation Potential Comments Fair due to chronic nature of symptoms and multiple low back surgeries Physical Therapy Goals In 10-12 visits: 1. Patient will be IND with HEP and self management of symptoms 2. Patient will be able to walk 180' with LRAD before needing to sit due to back pain to progress community ambulation 3. Patient will improve 5xSTS from 32.62s to 28.62s (MDC 4s) to demonstrate improvements in LE functional strength 4. Patient will be able to make it through the day 3/7 days of the week with self reported low level of leg pain /discomfort for improved activity tolerance Coordination/Communication With Referral Source Treatment Plan/Direct Interventions Gait Training,Ice/Cold/ Vasopneumatic,Joint Mobilization,Manual Therapy, Neuromuscular Re-ed,Self-Care/ Home Management,Therapeutic Activities,Therapeutic Exercises,Traction (Mechanical ) Frequency/Duration 1x a week for 10-12 weeks Patient Will Be Discharged From Therapy Completion of LTG(s), Independent w/HEP Evaluation Billing Untimed Code Treatment Minutes 33 Complexity Moderate Certification Information Initial Certification Date 05/04/24 Ending Certification Date 08/02/24 Provider Signature Required Yes Provider Signature Shows Agreement With POC & Medical Necessity Physician NPI Number Write NPI# Here Physician Comment/Change : Physician Signature & Date Requested Please Sign/Date Here
== END 2024-10-01 14:05 | disposition home or self-care (01) ==
PROVIDERS: PCP Physician Assistant Medical; Visit Provider Physician Assistant Medical
DX: M54.50 Low back pain, unspecified (principal); G89.29 Other chronic pain; R53.81 Other malaise; M62.81 Muscle weakness (generalized); R26.81 Unsteadiness on feet; R26.9 Unspecified abnormalities of gait and mobility; Z74.09 Other reduced mobility; Z51.89 Encounter for other specified aftercare
CPT/HCPCS: 85610; 97110; 97112; 97162

== ENCOUNTER 2024-07-25 11:04 | Outpatient (CLI) | payer MEDICARE, BC, SELFPAY | END 2024-07-25 11:05 | disposition home or self-care (01) | PROVIDERS: PCP Physician Assistant Medical; Visit Provider Physician Assistant Medical | DX: R06.09 Other forms of dyspnea (principal); I50.30 Unspecified diastolic (congestive) heart failure | CPT/HCPCS: 83880; 84484 ==

== ENCOUNTER 2024-08-28 09:04 | Outpatient (CLI) | payer MEDICARE, BC, SELFPAY | END 2024-08-28 09:05 | disposition home or self-care (01) | PROVIDERS: PCP Physician Assistant Medical; Visit Provider Emergency Medicine | DX: R06.09 Other forms of dyspnea (principal); Z79.01 Long term (current) use of anticoagulants | CPT/HCPCS: 83880 ==

== ENCOUNTER 2024-08-30 09:27 | Outpatient (CLI) | payer MEDICARE, BC, SELFPAY | END 2024-08-30 09:28 | disposition home or self-care (01) | LOC: NFLDREF 20:49 | PROVIDERS: PCP Physician Assistant Medical; Referring Provider Physician Assistant Medical; Visit Provider Family Medicine | DX: Z79.01 Long term (current) use of anticoagulants (principal) | CPT/HCPCS: 85610 ==

== ENCOUNTER 2024-11-14 09:48 | Outpatient (CLI) | payer MEDICARE, BC, SELFPAY | END 2024-11-14 09:49 | disposition home or self-care (01) | LOC: LKVREF 09:49 | PROVIDERS: PCP Physician Assistant Medical; Visit Provider Physician Assistant Medical | DX: I50.30 Unspecified diastolic (congestive) heart failure (principal) | CPT/HCPCS: 83880 ==

== ENCOUNTER 2025-02-28 09:05 | Outpatient (CLI) | payer MEDICARE, BC, SELFPAY | END 2025-02-28 09:06 | disposition home or self-care (01) | LOC: NFLDREF 03-06 08:02 | PROVIDERS: PCP Physician Assistant Medical; Referring Provider Physician Assistant Medical; Visit Provider Physician Assistant Medical | DX: R06.00 Dyspnea, unspecified (principal) | CPT/HCPCS: 80053; 80061; 84443; G0103 ==

== ENCOUNTER 2025-03-29 12:26 | Outpatient (CLI) | payer MEDICARE, BC, SELFPAY | END 2025-03-29 12:27 | disposition home or self-care (01) | LOC: NFLDREF 04-01 15:45 | PROVIDERS: PCP Physician Assistant Medical; Referring Provider Physician Assistant Medical; Visit Provider Family Medicine | DX: Z79.01 Long term (current) use of anticoagulants (principal) | CPT/HCPCS: 85610 ==

== ENCOUNTER 2025-06-12 09:25 | Outpatient (CLI) | payer MEDICARE, BC, SELFPAY | END 2025-06-12 09:26 | disposition home or self-care (01) | PROVIDERS: PCP Physician Assistant Medical; Visit Provider Physician Assistant Medical | DX: R06.02 Shortness of breath (principal); Z79.01 Long term (current) use of anticoagulants | CPT/HCPCS: 83880; 84484; 85610 ==

== ENCOUNTER 2025-06-25 07:31 | Outpatient (CLI) | payer MEDICARE, BC, SELFPAY ==
[2025-06-25] MEDS: REGADENOSON 0.4 MG/5 ML SYRINGE IVP (09:33)
[2025-06-25 09:50] VITALS: BP 150/88; PULSE 104; RESP 18
--- NOTE | 2025-06-25 10:31 | W.PM.STED ---
Stress Test Note Date Date Seen: 06/25/25 Date of test: 06/25/25 Providers Primary care provider: Liliana Joy Stress test physician: Johann Rao Stress Test Note Stress test ordered: Lexiscan Indication for test: Dyspnea Stress test medicine: Lexiscan Results discussion: This very nice patient presents for the above test, after discussion the risks benefits and side effects of the test, patient would like to continue. Cardiac stress test medical history form is reviewed entirely. Pretest EKG shows right bundle-branch block configuration along with atrial fibrillation with a controlled rate, 91. Blood pressure 1 40-184. Standard Lexiscan protocol is done, nonwalking for duration of 5 minutes. His maximum heart rate was 123, this is above his target heart rate coming in at 107%. Review of the tracing did not show any significant change from baseline. He was asymptomatic Impression: Negative electrographic portion Lexiscan, subjectively negative Follow up suggested: Await nuclear imaging review, clinical correlation with this will be needed, patient recovered normally and left this testing facility in excellent condition there were no complications.
== END 2025-06-25 07:32 | disposition home or self-care (01) ==
LOC: STRESS 07:33
PROVIDERS: PCP Physician Assistant Medical; Visit Provider Physician Assistant Medical
DX: R06.00 Dyspnea, unspecified (principal); R94.31 Abnormal electrocardiogram [ECG] [EKG]
CPT/HCPCS: 78452; 93016; 93017; A9500; J2785